=== PATIENT | female | born 1990 | race African-American/Black ===

== ENCOUNTER 2018-06-30 16:14 | Emergency (ER) | payer OTHER ==
[~2018-06-30] VITALS: Ht 162.6 cm; Wt 54.0 kg
[2018-06-30] MEDS ORDERED: LIPITOR 20 MG T20 M1 PO (16:30)
[2018-06-30] MEDS ORDERED: AMOXICILLIN500 M1 PO (16:30)
[2018-06-30] MEDS ORDERED: IRON325 PO (16:31)
[2018-06-30] MEDS ORDERED: IBUPROFEN 400400 M2 PO (16:31)
[2018-06-30] MEDS ORDERED: FOLIC ACID1 MG PO (16:31)
[2018-06-30] MEDS ORDERED: NEURONTIN 300300 M1 PO (16:31)
[2018-06-30] MEDS ORDERED: OXTELLAR XR600 MG PO (16:32)
[2018-06-30] MEDS ORDERED: KEPPRA 500 MG500 M1 PO (16:32)
[2018-06-30] MEDS ORDERED: VITAMIN D5000 UNI1 PO (16:32)
[2018-06-30] MEDS ORDERED: WHEELCHAIR1 EACH MISCELL (18:51)
[2018-06-30 19:12] VITALS: BP 91/73
== END 2018-06-30 19:07 | disposition home or self-care (01) ==
LOC: M.ERS 16:14
DX: S82.61XA Displaced fracture of lateral malleolus of right fibula, initial encounter for closed fracture (principal); Z88.8 Allergy status to other drugs, medicaments and biological substances; W50.2XXA Accidental twist by another person, initial encounter; Y93.89 Activity, other specified; Y92.89 Other specified places as the place of occurrence of the external cause; Y99.8 Other external cause status